=== PATIENT | female | born 1960 | race African-American/Black ===

== ENCOUNTER 2019-07-19 06:13 | Observation (INO) ==
[2019-07-19] MEDS ORDERED: DUONEB (A & A) INH ONE (07:31)
[2019-07-19 07:45] LABS: BASO# 0.02 X1000 (0.0-0.2); BASO% 0.4 % (0.0-0.8); EOS# 0.32 X1000 (0.0-0.7); EOS% 5.7 % (0.0-10.0); HEMATOCRIT 38.3 % (37.0-47.0); HEMOGLOBIN 12.5 g/dL (12.0-16.0); IMM GRAN# 0.02 X1000 (0.0-0.04); IMM GRAN% 0.4 % (0.0-0.5); LYMPH# 1.61 X1000 (1.2-3.4); LYMPH% 28.8 % (20.5-51.1); MCH 29.6 PG (27-31); MCHC 32.6 g/dL (33-37); MCV 90.5 FL (81-99); MONO# 0.76 X1000 (0.11-0.59); MONO% 13.6 % (1.7-9.3); MPV 10.2 FL (7.4-10.4); NEUT# 2.87 X1000 (1.4-6.5); NEUT% 51.1 % (42.2-75.2); PLT 232 X1000 (130-400); RBC 4.23 XMIL (4.2-5.4); RDW 12.7 % (11.5-14.5)
[2019-07-19 07:52] LABS: INR 1.04; PROTIME 13.8 Seconds (11.0-16.0)
[2019-07-19 07:53] LABS: PTT 36.3 Seconds (22.3-41.8)
--- NOTE | 2019-07-19 08:03 | Diag Imaging Result Doc PS360 ---
CHEST-PORTABLE - 07/19/2019 INDICATION: stroke like symptoms COMPARISON: 11/12/2018 FINDINGS: The lungs are normally expanded and clear. Heart size and mediastinal contours are normal. No pneumothorax or pleural effusion. IMPRESSION: Negative exam. Electronically signed by Lm Hernandez 07/19/2019 8:01 AM
--- NOTE | 2019-07-19 08:08 | EKG Report ---
Test Performed on : 07/19/2019 06:19:38 AM Test Reason : Stroke like symptoms Blood Pressure : / mmHG Vent. Rate : 074 BPM Atrial Rate : 074 BPM P-R Int : 158 ms QRS Dur : 074 ms QT Int : 392 ms P-R-T Axes : 046 037 011 degrees QTc Int : 435 ms Normal sinus rhythm. Possible Left atrial enlargement Borderline ECG When compared with ECG of 12-NOV-2018 18:09, Nonspecific T wave abnormality has replaced inverted T waves in Anterior leads Unconfirmed Result
[2019-07-19 08:11] LABS: AGAP 14; ALB/GLOB RATIO 1.7; ALBUMIN 4.3 g/dL (3.5-5.0); ALKALINE PHOSPHATASE 84 U/L (32-104); BUN 8 mg/dL (8-22); CALCIUM 9.7 mg/dL (8.8-10.2); CHLORIDE 102 mmol/L (98-107); COSMO 283; CREATININE 0.7 mg/dL (0.5-0.9); ESTIMATED GFR > 60; GLUCOSE 94 mg/dL (70-104); GOT 18 U/L (10-30); GPT 16 U/L (10-36); POTASSIUM 4.5 mmol/L (3.5-5.1); SODIUM 143 mmol/L (136-145); TCO2 27 mmol/L (25-35); TOTAL BILIRUBIN 0.58 mg/dL (0.20-1.00); TOTAL PROTEIN 6.9 g/dL (6.3-8.3)
[2019-07-19 08:22] LABS: URINE SOURCE CLEAN CATCH
[2019-07-19 08:28] LABS: BILIRUBIN URINE SMALL (NEGATIVE); BLOOD URINE TRACE (NEGATIVE); COLOR YELLOW; GLUCOSE URINE NEGATIVE (NEGATIVE); KETONE URINE NEGATIVE (NEGATIVE); LEUKOCYTES URINE NEGATIVE (NEGATIVE); NITRITE URINE POSITIVE (NEGATIVE); PROTEIN URINE TRACE mg/dL (NEGATIVE); TURBIDITY URINE CLEAR (CLEAR); UR EPITHELIAL CELLS <10 /HPF (<10); URINE BACTERIA NEGATIVE /HPF; URINE RBC <10 /HPF (<10); URINE WBC <10 /HPF (<10); UROBILINOGEN URINE 3 mg/dL (NORMAL)
[2019-07-19 08:41] LABS: UR AMPHETAMINES QUAL NONE DETECTED (NONE DETECT); UR BARBITUATES QUAL NONE DETECTED (NONE DETECT); UR BENZODIAZEPIN QUAL NONE DETECTED (NONE DETECT); UR CANNABINOIDS QUAL NONE DETECTED (NONE DETECT); UR COCAINE QUAL NONE DETECTED (NONE DETECT); UR METHADONE QUAL NONE DETECTED (NONE DETECT); UR OPIATES QUAL NONE DETECTED (NONE DETECT); UR OXYCODONE QUAL NONE DETECTED (NONE DETECT); UR PCP QUAL NONE DETECTED (NONE DETECT)
--- NOTE | 2019-07-19 08:47 | Diag Imaging Result Doc PS360 ---
EXAM: CT HEAD W/O CONTRAST 07/19/2019 HISTORY: stroke like symptoms TECHNIQUE: This exam was performed using automated exposure control, adjustment of mA or kV according to patient size, and/or use of iterative reconstruction technique. COMMENT: There are small calcifications in the globus pallidus bilaterally. There is no evidence of mass effect, bleed, or abnormal extra-axial fluid collection. Compared to the previous examination of 07/10/2018 there has been no significant change. There is some fluid in the right maxillary sinus and mucosal thickening in multiple ethmoid air cells. There is some deformity of the lamina papyracea on the left which is presumably due to previous trauma and has not changed since the previous study. The calvarium is intact. IMPRESSION: No evidence of acute intracranial disease. Minimal ethmoid and right maxillary sinusitis. Electronically signed by Lb Diaz 07/19/2019 8:38 AM
--- NOTE | 2019-07-19 09:52 | PROVIDER DOCUMENTATION ---
HPI-Neurological Disorder - General Chief Complaint: General Adult Stated Complaint: COLD SYMPTOMS, SOB/L-SIDE NUMBNESS Time Seen by Provider: 07/19/19 07:07 Source: patient Allergies/Adverse Reactions: Patient Allergies Allergy/AdvReac Type Severity Reaction Status Date / Time No Known Allergies Allergy Verified 07/19/19 06:42 Home Medications: Home Medication List Medication Instructions Recorded Confirmed Last Taken Type Citalopram [Celexa] 20 mg PO DAILY 07/11/18 07/19/19 07/10/18 History ATORVAstatin [Lipitor] 40 mg PO QHS #30 tab 07/12/18 07/19/19 Unknown Rx Clopidogrel Bisulfate [Plavix] 75 mg PO DAILY #30 tab 07/12/18 07/19/19 Unknown Rx Ibuprofen 800 mg PO TID PRN #30 tab 11/12/18 07/19/19 Unknown Rx Cephalexin 500 mg PO DAILY 07/19/19 07/19/19 Unknown History Gabapentin 300 mg PO TID 07/19/19 07/19/19 Unknown History Phenazopyridine [Pyridium] 200 mg PO TID 07/19/19 07/19/19 Unknown History - History of Present Illness-Neuro Nature of Presenting Problem: 59 yo BF with hx of CVA c/o URI sx and headache with lt sided weakness for the past 2 days. She states that this weakness is new for the past 2 days. Pt denies any speech or vision problems. Headache Location: reports: parietal (lt sided) Severity: reports: mild Onset/Duration: reports: 2 days ago Timing: reports: still present Context: denies: none, found unresponsive by senior living staff, fever, impaired speech, paresthesia, facial droop, falling, seizure activity, found unresponsive by bystander, found unresponsive by family, low blood sugar, recent/heavy alcohol intake, drug abuse, overdose, head injury, recent infection, other Character of Altered Mental Status: denies: N/A, disoriented, unchanged from baseline, confused, combative, agitated, trouble concentrating, unresponsive, seizure activity, decreased responsiveness, other Any recent trauma/injury?: reports: none Character of Deficits: reports: new weakness (lt upper and lower extremity) New weakness or altered sensation location:: reports: LUE, LLE Cognitive Baseline: alert, oriented x3 Gait Baseline: walks without assistance Associated Symptoms: reports: other (cough and sinus congestion) Similar Symptoms Previously?: Yes Recently seen or treated by another doctor?: No Review of Systems - Adult - REVIEW OF SYSTEMS - ADULT Constitutional: reports: no symptoms reported, see HPI Eyes: reports: no symptoms reported, see HPI Ears, Nose, Mouth & Throat: reports: see HPI, sinus problem Cardiovascular: reports: no symptoms reported, see HPI Respiratory: reports: see HPI, cough Gastrointestinal: reports: no symptoms reported, see HPI Genitourinary: reports: no symptoms reported, see HPI Musculoskeletal: reports: no symptoms reported, see HPI Integumentary: reports: no symptoms reported, see HPI Neurological: reports: see HPI, other (lt sided weakness) Psychiatric: reports: no symptoms reported, see HPI Endocrine: reports: no symptoms reported, see HPI Hematologic/Lymphatic: reports: no symptoms reported, see HPI Allergic/Immunologic: reports: no symptoms reported, see HPI All Other Systems: Reviewed and Negative Past History - Adult - PAST MEDICAL HISTORY-ADULT Review of Records: reports: Nursing Assessment Review, Medications Reviewed, Social history reviewed & non-contributory. Physical Exam- Neurological - Physical Exam-Neuro Initial Vital Signs Reviewed: Yes General Appearance: appears well, alert, no apparent distress HENMT: normocephalic/atraumatic, moist mucous membranes, maxillary tenderness, other (sinusitis) Head Injury: no evidence of injury Neck: non-tender, full range of motion, supple, normal inspection Respiratory: chest non-tender, lungs clear, normal breath sounds, no pleuratic chest pain, no respiratory distress, no accessory muscle use Cardiovascular: normal peripheral pulses, regular rate, rhythm, no edema, no g allop, no JVD, no murmur Abdominal Exam: normal bowel sounds, non tender, soft, no organomegaly Lymphatic: no adenopathy Extremity: normal range of motion, non-tender global engineering manager Exam: normal hearing, normal speech, PERRL Coordination/Gait: normal finger to nose Motor/Sensory: no sensory deficit, no pronator drift, other (lt sided decreased motor) Neurologic: global engineering manager II-XII nml as tested, grossly normal Integumentary: normal color, normal turgor Psych/Mental Status: normal mood/affect, normal thought content, normal thought process, oriented x 3 - Glascow Coma Scale Best Eye Response: (4) open spontaneously Best Verbal Response: (5) oriented Best Motor Response: (6) obeys commands Progress - PLAN OF CARE/RESULTS Progress/Plan/Lab Results: Vital Signs - 8 hr 07/19/19 06:14 07/19/19 08:37 Temperature 98.7 F Pulse Rate 74 60 Respiratory Rate 19 20 Blood Pressure 140/79 O2 Sat by Pulse Oximetry 100 100 Laboratory Results - last 24 hr 07/19/19 07/19/19 07/19/19 06:27 06:49 06:49 WBC 5.60 RBC 4.23 Hgb 12.5 Hct 38.3 MCV 90.5 MCH 29.6 MCHC 32.6 L RDW Std Deviation 12.7 Plt Count 232 MPV 10.2 Immature Gran % (Auto) 0.4 Neut % (Auto) 51.1 Lymph % (Auto) 28.8 [place] % (Auto) 13.6 H Eos % (Auto) 5.7 Baso % (Auto) 0.4 Immature Gran # (Auto) 0.02 Neut # (Auto) 2.87 Lymph # (Auto) 1.61 [place] # (Auto) 0.76 H Eos # (Auto) 0.32 Baso # (Auto) 0.02 PT INR PTT (Actin FS) Sodium 143 Potassium 4.5 Chloride 102 Carbon Dioxide 27 Anion Gap 14 BUN 8 Creatinine 0.7 Estimated GFR/1.73 m2 > 60 BUN/Creatinine Ratio 11 Glucose 94 POC Glucose 78 Calculated Osmolality 283 Calcium 9.7 Total Bilirubin 0.58 AST 18 ALT 16 Alkaline Phosphatase 84 Troponin T Total Protein 6.9 Albumin 4.3 Globulin 2.6 Albumin/Globulin Ratio 1.7 Urine Source Urine Color Urine Turbidity Urine pH Ur Specific [place] Urine Protein Ur Glucose (Stick) Ur Ketones (Stick) Urine Blood Urine Nitrite Urine Bilirubin Urobilinogen Dipstick Urine Leukocytes Urine WBC (Auto) Urine RBC (Auto) U Epithel Cells (Auto) Urine Bacteria (Auto) Urine Opiates Screen Ur Oxycodone Screen Ur Methadone, Qual Ur Barbiturates Screen Ur Phencyclidine Scrn Ur Amphetamines Screen U Benzodiazepines Scrn Urine Cocaine Screen U Cannabinoids Screen 07/19/19 07/19/19 07/19/19 06:49 06:49 08:16 WBC RBC Hgb Hct MCV MCH MCHC RDW Std Deviation Plt Count MPV Immature Gran % (Auto) Neut % (Auto) Lymph % (Auto) [place] % (Auto) Eos % (Auto) Baso % (Auto) Immature Gran # (Auto) Neut # (Auto) Lymph # (Auto) [place] # (Auto) Eos # (Auto) Baso # (Auto) PT 13.8 INR 1.04 PTT (Actin FS) 36.3 Sodium Potassium Chloride Carbon Dioxide Anion Gap BUN Creatinine Estimated GFR/1.73 m2 BUN/Creatinine Ratio Glucose POC Glucose Calculated Osmolality Calcium Total Bilirubin AST ALT Alkaline Phosphatase Troponin T < 0.010 Total Protein Albumin Globulin Albumin/Globulin Ratio Urine Source CLEAN CATCH Urine Color YELLOW Urine Turbidity CLEAR Urine pH 7.0 Ur Specific [place] 1.020 Urine Protein TRACE A Ur Glucose (Stick) NEGATIVE Ur Ketones (Stick) NEGATIVE Urine Blood TRACE A Urine Nitrite POSITIVE A Urine Bilirubin SMALL A Urobilinogen Dipstick 3 A Urine Leukocytes NEGATIVE Urine WBC (Auto) <10 Urine RBC (Auto) <10 U Epithel Cells (Auto) <10 Urine Bacteria (Auto) NEGATIVE Urine Opiates Screen Ur Oxycodone Screen Ur Methadone, Qual Ur Barbiturates Screen Ur Phencyclidine Scrn Ur Amphetamines Screen U Benzodiazepines Scrn Urine Cocaine Screen U Cannabinoids Screen 07/19/19 08:16 WBC RBC Hgb Hct MCV MCH MCHC RDW Std Deviation Plt Count MPV Immature Gran % (Auto) Neut % (Auto) Lymph % (Auto) [place] % (Auto) Eos % (Auto) Baso % (Auto) Immature Gran # (Auto) Neut # (Auto) Lymph # (Auto) [place] # (Auto) Eos # (Auto) Baso # (Auto) PT INR PTT (Actin FS) Sodium Potassium Chloride Carbon Dioxide Anion Gap BUN Creatinine Estimated GFR/1.73 m2 BUN/Creatinine Ratio Glucose POC Glucose Calculated Osmolality Calcium Total Bilirubin AST ALT Alkaline Phosphatase Troponin T Total Protein Albumin Globulin Albumin/Globulin Ratio Urine Source Urine Color Urine Turbidity Urine pH Ur Specific [place] Urine Protein Ur Glucose (Stick) Ur Ketones (Stick) Urine Blood Urine Nitrite Urine Bilirubin Urobilinogen Dipstick Urine Leukocytes Urine WBC (Auto) Urine RBC (Auto) U Epithel Cells (Auto) Urine Bacteria (Auto) Urine Opiates Screen NONE DETECTED Ur Oxycodone Screen NONE DETECTED Ur Methadone, Qual NONE DETECTED Ur Barbiturates Screen NONE DETECTED Ur Phencyclidine Scrn NONE DETECTED Ur Amphetamines Screen NONE DETECTED U Benzodiazepines Scrn NONE DETECTED Urine Cocaine Screen NONE DETECTED U Cannabinoids Screen NONE DETECTED Orders Category Date Time Status Cardiac Monitoring DIRECTED Care 07/19/19 07:30 Active Finger Stick Blood Sugar (ED) DIRECTED Care 07/19/19 07:30 Completed Oxygen Therapy- ED Nursing DIRECTED Care 07/19/19 07:30 Active Saline Loc NOW Care 07/19/19 07:30 Active CHEST-PORTABLE [RAD] Stat Exams 07/19/19 07:[address] HEAD W/O CONTRAST [CT] Stat Exams 07/19/19 07:30 Completed CBC WITH ELECTRONIC DIFF [HEME] Stat Lab 07/19/19 06:49 Completed COMPREHENSIVE METABOLIC PANEL [CHEM] Stat Lab 07/19/19 06:49 Completed PROTIME WITH INR [COAG] Stat Lab 07/19/19 06:49 Completed PTT [COAG] Stat Lab 07/19/19 06:49 Completed TROPONIN T Stat Lab 07/19/19 06:49 Completed URINALYSIS W/POSS RFLX CULT [URINALYSIS] Stat Lab 07/19/19 08:16 Completed URINE CULTURE [RM] Routine Lab 07/19/19 08:16 Received URINE DRUG SCREEN Stat Lab 07/19/19 08:16 Completed Albuterol 2.5MG/Ipratrop 0.5MG [Duoneb (A & A)] Med 07/19/19 07:31 Discontinued 3 ml INH NOW ONE Aerosol Treatments Routine Oth 07/19/19 07:32 Completed Aerosol Treatments Stat Oth 07/19/19 07:32 Completed EKG [EKG] Stat Ther 07/19/19 07:30 Draft Result Diagrams: 07/19/19 06:49 07/19/19 06:49 - CT/MRI 1 CT Study: Head Impression: Normal, See EMR Report - CONSULTS/PCP/HOSPITALIST Notification #1 *Consult/PCP/Hospitalist*: Tonya WHEAT COMBINE DRIVER for hospitalist Time Discussed: 10:16 Consult Disposition: Will see in ED, Admit Departure - Departure Date of Disposition Decision: 07/19/19 Time of Disposition Decision: 10:17 DIAGNOSIS: UTI (urinary tract infection), Sinusitis, Left-sided weakness Disposition: ADMITTED INPATIENT 09 Certified Medical Emergency: Emergent Condition: Fair Referrals and Follow-Ups: Teri Long CRNP [Primary Care Provider] - - Critical Care Note This patient required my direct & personal management of CC.: No Attestation - Physician/ CECY Attestation Patient care was provided by Advanced Practice Provider:: No The physician spent face to face time with patient:: Yes Advanced Practice Provider documentation review:: Supervising physician onsite and consulted in the evaluation and care of this patient. The physician did have a face to face encounter with the patient.
[2019-07-19] MEDS ORDERED: ZOFRAN IV PRN (10:16)
[2019-07-19] MEDS ORDERED: ROCEPHIN 1 GM in NS 50 ML IV ONE (10:18)
[2019-07-19] MEDS ORDERED: ZITHROMAX PO ONE (10:18)
[2019-07-19] MEDS ORDERED: TYLENOL PO PRN (10:20)
[2019-07-19] MEDS: PYRIDIUM PO SCH ×2 (11:28→18:43)
[2019-07-19] MEDS: MUCINEX PO SCH ×2 (12:18→20:43)
[2019-07-19] MEDS: PLAVIX PO SCH (12:19)
[2019-07-19] MEDS: NS 1,000 ML IV SCH (12:20)
[2019-07-19] MEDS: NEURONTIN PO SCH ×2 (12:59→18:43)
--- NOTE | 2019-07-19 13:29 | HISTORY AND PHYSICAL ---
CHIEF COMPLAINT: Headache, cough, sinus drainage, and left-sided weakness. HISTORY OF PRESENT ILLNESS: This is a 59-year-old female with a history of hypertension and prior CVA with left-sided weakness, who presents to the emergency room complaining of 2 days of a headache that is behind her left eye and into her left cheek. She states it is a throbbing-type headache that was diagnosed as sinusitis by her PCP approximately 3 days prior. She reports left arm and left leg, during this time. When asked if this is new or residual from her prior CVA, Answers vary. At one time, she states that this left-sided weakness is residual from her prior stroke. Another time, she will state that this is new. She complains of a productive cough, as well as increased nasal congestion, stating that secretions are yellow. She denies any fevers or chills. She reports being evaluated by her PCP 2 days prior for the same symptoms, diagnosed with a urinary tract infection and sinusitis. She was prescribed Keflex and Pyridium. PAST MEDICAL HISTORY: 1. CVA with left-sided weakness. 2. Migraine headaches. PAST SURGICAL HISTORY: section and hysterectomy. SOCIAL HISTORY: She denies any illicit drug use. States she quit smoking years ago. She does drink alcohol occasionally, with her last drink being months ago. ALLERGIES: No known drug allergies. HOME MEDICATIONS: Lipitor 40, Celexa 20 mg, Plavix 75 mg, gabapentin 300 mg p.o. t.i.d., Pyridium 200 mg p.o. t.i.d., and Keflex 500 p.o. daily. REVIEW OF SYSTEMS: Discussed with the patient, with pertinent positives stated in the HPI. She denies any syncope or dizziness, any chest pain or palpitations, any shortness of breath, fever, chills, night sweats, any nausea, vomiting, diarrhea, constipation, black or bloody vomitus or stools, any hematuria, any change in vision, hearing, or speech. She denies any difficulty swallowing or chewing food. PHYSICAL EXAMINATION: GENERAL: This is a 59-year-old female who is sitting up in the stretcher in the emergency room in no distress. VITAL SIGNS: Blood pressure is 140/79, with a heart rate of 74, respirations are 18, temperature is 98.7 degrees with room air saturations of 100%. HEENT: Head is normocephalic, atraumatic. Mucous membranes are moist. NECK: Supple with trachea midline. CARDIOVASCULAR: Regular rate and rhythm. S1 and S2 are appreciated. She has no lower extremity edema. Calves are nontender bilaterally, with peripheral pulses palpable x4 extremities. PULMONARY: Breath sounds are clear with no increased work of breathing noted. Chest rises and falls symmetric with respiration. Chest wall is nontender to palpation. GASTROINTESTINAL: Abdomen is soft, nontender, nondistended, with bowel sounds in all 4 quadrants. NEUROLOGIC: Pupils are equal, round, react to light. Forehead is spared. She has no facial droop. Equal nasal flaring. No tongue or uvula deviation. She has equal shoulder shrug. No plantar drift. Finger to nose is 3/3 bilaterally. Hoof And Shoe Inspector are equal. Muscle strength on right upper and lower extremity is 5/5, left upper and lower extremity is 3 to 4/5. LABORATORY DATA: WBC is 5.6, with hemoglobin 12.5, hematocrit 38.3, and platelets 232,000. Sodium 143, potassium 4.5, BUN 8, creatinine 0.7, glucose of 94. Urinalysis is nitrite positive with less than 10 red blood cells, white blood cells, and epithelial cells. Urine drug screen reveals none detected. Urine culture is pending. IMAGIN. CT of the head revealed no evidence of acute intracranial disease. Minimal ethmoid and right maxillary sinusitis. 2. Chest x-ray revealed negative exam. ASSESSMENT: 1. Headache. 2. Sinusitis. 3. Possible urinary tract infection. 4. Left-sided weakness status post cerebrovascular accident. 5. Hyperlipidemia. PLAN: The patient will be admitted to the medical floor. placed on telemetry with neurologic checks every 4 hours. Monitor I and O. CBC and BMP in the morning. Urine culture is pending. Rocephin and azithromycin, and further antibiotics will be culture driven. continue home medications as appropriate once they are verified. Mucinex every 12 hours gentle IV hydration. Plan was discussed with Dr. Howe. Further treatments pending hospital course. Dictated by STANISLAV Duque for Morgan Luz MD Addendum: Patient seen and examined by myself. Agree with SCIENTIFIC EDITOR note. It reflects my assessment and plan. Patient is being admitted to hospital for UTI and headache and sinusitis. Will monitor her closely. cc: STANISLAV Duque MD MTDD
[2019-07-19] MEDS ORDERED: TESSALON PO PRN (16:19)
[2019-07-19] MEDS: DUONEB (A & A) INH PRN ×2 (20:03→23:40)
[2019-07-19] MEDS: MIRALAX PO SCH (20:42)
[2019-07-19] MEDS ORDERED: LIPITOR PO SCH (21:00)
[2019-07-20] MEDS: NEURONTIN PO SCH (03:04)
[2019-07-20] MEDS: PYRIDIUM PO SCH (03:05)
[2019-07-20] MEDS: DUONEB (A & A) INH PRN ×2 (03:42→08:25)
[2019-07-20] MEDS: NS 1,000 ML IV SCH (06:38)
[2019-07-20] MEDS ORDERED: PRILOSEC PO SCH (07:00)
[2019-07-20 07:25] LABS: BASO# 0.02 X1000 (0.0-0.2); BASO% 0.4 % (0.0-0.8); EOS# 0.26 X1000 (0.0-0.7); EOS% 5.1 % (0.0-10.0); HEMATOCRIT 37.2 % (37.0-47.0); HEMOGLOBIN 11.8 g/dL (12.0-16.0); IMM GRAN# 0.02 X1000 (0.0-0.04); IMM GRAN% 0.4 % (0.0-0.5); LYMPH# 1.99 X1000 (1.2-3.4); LYMPH% 38.7 % (20.5-51.1); MCH 28.9 PG (27-31); MCHC 31.7 g/dL (33-37); MCV 91.2 FL (81-99); MONO# 0.58 X1000 (0.11-0.59); MONO% 11.3 % (1.7-9.3); NEUT# 2.27 X1000 (1.4-6.5); NEUT% 44.1 % (42.2-75.2); PLT 248 X1000 (130-400); RBC 4.08 XMIL (4.2-5.4); RDW 12.8 % (11.5-14.5); WBC 5.14 X1000 (4.8-10.8)
[2019-07-20 07:53] LABS: AGAP 13; BUN 8 mg/dL (8-22); CALCIUM 9.7 mg/dL (8.8-10.2); CHLORIDE 100 mmol/L (98-107); COSMO 274; CREATININE 0.6 mg/dL (0.5-0.9); ESTIMATED GFR > 60; GLUCOSE 102 mg/dL (70-104); POTASSIUM 3.8 mmol/L (3.5-5.1); SODIUM 138 mmol/L (136-145); TCO2 25 mmol/L (25-35)
[2019-07-20 07:56] VITALS: BP 127/84
[2019-07-20] MEDS ORDERED: CELEXA PO SCH (09:00)
[2019-07-20] MEDS: MIRALAX PO SCH (09:26)
[2019-07-20] MEDS: PLAVIX PO SCH (09:27)
[2019-07-20] MEDS: MUCINEX PO SCH (09:27)
--- NOTE | 2019-07-20 12:10 | DISCHARGE SUMMARY ---
ADMISSION DATE: 07/19/2019 DISCHARGE DATE: 07/20/2019 DIAGNOSES: 1. Headache. 2. Sinusitis. 3. Possible urinary tract infection, although urine revealed no growth. 4. Left-sided weakness, status post cerebrovascular accident, chronic. 5. Hyperlipidemia. DIAGNOSTICS: 1. Chest x-ray revealed negative exam. 2. CT of the head, no evidence of acute intracranial disease. Minimal ethmoid and right maxillary sinusitis. 3. Microbiology, urine culture revealed no growth. HOSPITAL COURSE: Ms. Sutton presented to the emergency room complaining of a headache behind her left eye, going down into her left cheek, that had been present for over 48 hours. She described it as a throbbing type pain. She rates as a 9/10 at its worst and 2- 3/10 at its best. She was evaluated by her primary care physician 3 days prior for these symptoms, diagnosed with sinusitis and a UTI and given antibiotics with no change in symptoms. She reported left arm and left leg weakness. Answers varied re:this being chronic from a previous CVA or new . At one time, she would say it was a result of a prior stroke. Another time, she would say it was new. She did have a nitrite positive urine dip, although it should be noted the patient is on Pyridium. Anyway, the culture did reveal no growth. DISCHARGE VITAL SIGNS: Blood pressure is 127/84, with a heart rate of 68, respirations are 18, temperature 98.1 degrees, with room air saturations 96 to 100 percent. DISCHARGE PHYSICAL EXAMINATION: Cardiovascular: Regular rate and rhythm. S1 and S2 are appreciated. She has no lower extremity edema. Calves are nontender. Peripheral pulses are palpable x4 extremities. Pulmonary: Breath sounds are clear with no increased work of breathing noted. Chest rises and falls symmetrically with respirations. Gastrointestinal: Abdomen is soft, nontender, nondistended. Bowel sounds in all 4 quadrants. Neurologic: She is alert and oriented x3 with unchanged neurological exam from admission. DISCHARGE MEDICATIONS: 1. Levaquin 750 mg p.o. daily x7 days. 2. Ibuprofen 800 mg p.o. t.i.d. p.r.n. for pain or fever. 3. Gabapentin 300 mg p.o. t.i.d. 4. Plavix 75 mg p.o. daily. 5. Celexa 20 mg p.o. daily. 6. Atorvastatin 40 mg p.o. at bedtime FOLLOWUP: STANISLAV Helton. She needs to call the office on Wednesday to schedule an appointment to be seen in a week. She has been instructed to call to be seen sooner or return to the ER for any syncope, dizziness, chest pain, palpitations, temperature greater than 101, any shortness of breath, nausea, vomiting, diarrhea, constipation, black or bloody vomitus or stools, or for any questions or concerns that she may have. She is being discharged home in stable condition with family members. TIME SPENT: This is a greater than 30 minute discharge. Dictated by STANISLAV Duque for Morgan Luz MD Addendum: Patient seen and examined by myself. Agree with STANISLAV note. It reflects my assessment and plan. Patient is being discharged in stable condition. Will be seen by PCP in a week cc: STANISLAV Duque MD [facility]
== END 2019-07-20 11:41 | disposition home or self-care (01) ==
LOC: EDIPHOLD 06:13 → ED 06:13 → 3N 12:23
PROVIDERS: ATTEND Internal Medicine

== ENCOUNTER 2019-12-04 14:42 | Inpatient (IN) ==
[2019-12-04 16:25] LABS: URINE SOURCE CLEAN CATCH
[2019-12-04 16:32] LABS: BASO# 0.06 X1000 (0.0-0.2); BASO% 0.9 % (0.0-0.8); EOS# 0.23 X1000 (0.0-0.7); EOS% 3.3 % (0.0-10.0); HEMATOCRIT 37.7 % (37.0-47.0); HEMOGLOBIN 12.2 g/dL (12.0-16.0); IMM GRAN# 0.02 X1000 (0.0-0.04); IMM GRAN% 0.3 % (0.0-0.5); LYMPH# 2.14 X1000 (1.2-3.4); LYMPH% 30.5 % (20.5-51.1); MCHC 32.4 g/dL (33-37); MCV 89.8 FL (81-99); MONO# 0.44 X1000 (0.11-0.59); MONO% 6.3 % (1.7-9.3); MPV 9.8 FL (7.4-10.4); NEUT# 4.13 X1000 (1.4-6.5); NEUT% 58.7 % (42.2-75.2); PLT 257 X1000 (130-400); RDW 12.8 % (11.5-14.5); WBC 7.02 X1000 (4.8-10.8)
--- NOTE | 2019-12-04 16:39 | PROVIDER DOCUMENTATION ---
HPI-General Adult - General Chief Complaint: Constipation Stated Complaint: SEVERE BACK PAIN CONSTIPATION Time Seen by Provider: 12/04/19 15:05 Source: patient Allergies/Adverse Reactions: Patient Allergies Allergy/AdvReac Type Severity Reaction Status Date / Time Stone And Derivatives Allergy Mild ITCHING Verified 12/04/19 17:11 Home Medications: Home Medication List Medication Instructions Recorded Confirmed Last Taken Type Citalopram [Celexa] 20 mg PO DAILY 07/11/18 07/19/19 07/18/19 08:00 History ATORVAstatin [Lipitor] 40 mg PO QHS #30 tab 07/12/18 07/19/19 07/18/19 21:00 Rx Clopidogrel Bisulfate [Plavix] 75 mg PO DAILY #30 tab 07/12/18 07/19/19 07/18/19 08:00 Rx Ibuprofen 800 mg PO TID PRN #30 tab 11/12/18 07/19/19 Unknown Rx Gabapentin 300 mg PO TID 07/19/19 07/19/19 07/18/19 21:00 History Phenazopyridine [Pyridium] 200 mg PO TID 07/19/19 07/19/19 07/18/19 21:00 History Levofloxacin [Levaquin] 750 mg PO DAILY #7 tab 07/20/19 Unknown Rx - History of Present Illness -Gen Adult Nature of Presenting Problems: Patient is a 59yo F who presents with complaints of low back pain radiating down R leg, increased urinary frequency, constipation, and increased belching. Reports she has chronic back pain, and current "flare up" began 4 days ago. Denies any known injury/strain. Patient also reports she has been unable to have a bowl movement in 1.5 - 2 weeks despite numerous OTC medicatio ns/suppositories. States she is also experiencing increased belching, however is unable to pass gas. Denies fever, flu-like symptoms, n/v, dysuria, loss of bowel/bladder control, motor weakness, CP, or SOB. Patient is able to ambulate with pain in ED. Sensation and motor strength equal in bilateral lower extremities. Non-toxic in appearance. Location of Pain/Injury: reports: abdomen, back Pain Radiation: reports: legs (lower) (R) Quality of Pain: reports: aching, pressure Severity: reports: moderate Onset/Duration: reports: 4 days ago (back pain "flare"), other (1.5 weeks ago - constipation) Timing: reports: still present Context/Activities at Onset: reports: none Modifying Factors: improves with: rest. worse with: movement Associated Symptoms: reports: back/neck pain, constipation, genitourinary problems. denies: chest pain, dizziness, fever/chills, nausea, shortness of breath, weakness Similar Symptoms Previously?: Yes (chronic back pain) Recently seen or treated by another doctor?: No Review of Systems - Adult - REVIEW OF SYSTEMS - ADULT Constitutional: denies: chills, fever Eyes: reports: no symptoms reported Ears, Nose, Mouth & Throat: denies: sinus problem, throat pain Cardiovascular: denies: chest pain, palpitations Respiratory: denies: cough, shortness of breath Gastrointestinal: reports: see HPI, abdominal pain, constipation. denies: nausea, vomiting Genitourinary: reports: see HPI, frequency. denies: dysuria Musculoskeletal: reports: see HPI, back pain Integumentary: reports: no symptoms reported Neurological: denies: dizziness/vertigo, headache/migraines Psychiatric: reports: no symptoms reported Endocrine: reports: no symptoms reported Past History - Adult - PAST MEDICAL HISTORY-ADULT Review of Records: reports: Nursing Assessment Review, Medications Reviewed Cardiovascular: reports: HTN, hyperlipidemia Musculoskeletal: reports: chronic pain Neurological: reports: CVA - IMMUNIZATION STATUS Childhood Immunizations: See Nurse Assessment Flu Vaccine: See Nurse Assessment - FAMILY HISTORY Family History: reviewed, not pertinent - SOCIAL HISTORY Smoking: other (former) Physical Exam-General - PHYSICAL EXAM-ADULT Initial Vital Signs Reviewed: Yes - CONSTITUTIONAL General Appearance: alert, mild distress. negative: lethargic, slow to respond - EYES Eyes: PERRL/EOMI, pink conjunctivae. negative: EOM palsy, scleral icterus - HEAD, EARS, NOSE, MOUTH & THROAT HENMT: normocephalic/atraumatic, moist mucous membranes. negative: angioedema - NECK Neck: non-tender, full range of motion, supple, normal inspection - RESPIRATORY Respiratory: chest non-tender, lungs clear, normal breath sounds, no pleuratic chest pain, no respiratory distress, no accessory muscle use. negative: crackles, rales, rhonchi, stridor, wheezing - CARDIOVASCULAR Cardiovascular: normal peripheral pulses, regular rate, rhythm, no gallop - GASTROINTESTINAL (ABDOMEN) Abdominal Exam: soft, abnormal bowel sounds (hyperactive x4), distended, tenderness (mild diffuse tenderness to palpation). negative: guarding, rigid - GENITOURINARY Rectal Exam: normal exam, normal rectal tone - MUSCULOSKELETAL Back Exam: normal inspection, no CVA tenderness, other (R lumbar paraspinous muscles TTP) Extremity: normal range of motion, non-tender, normal inspection, pelvis stable. negative: abnormal NV exam, pulse deficit Peripheral Pulses: radial (R): 2+, radial (L): 2+, dorsalis-pedis (R): 2+, dorsalis-pedis (L): 2+ DTR: knee (R): 2+, knee (L): 2+, ankle (R): 2+, ankle (L): 2+ - SKIN Integumentary: normal color, warm/dry. negative: cyanosis, jaundice, pallor - NEUROLOGIC Neurologic: grossly normal. negative: aphasia, EOM palsy, focal weakness, motor weakness, sensory deficit - PSYCHIATRIC Psych/Mental Status: normal mood/affect, normal thought content, normal thought process, oriented x 3 Progress - PLAN OF CARE/RESULTS Progress/Plan/Lab Results: Vital Signs - 8 hr 12/04/19 14:46 Temperature 98.7 F Pulse Rate 64 Respiratory Rate 18 Blood Pressure 120/64 O2 Sat by Pulse Oximetry 97 Laboratory Results - last 24 hr 12/04/19 12/04/19 16:12 16:16 WBC 7.02 RBC 4.20 Hgb 12.2 Hct 37.7 MCV 89.8 MCH 29.0 MCHC 32.4 L RDW Std Deviation 12.8 Plt Count 257 MPV 9.8 Immature Gran % (Auto) 0.3 Neut % (Auto) 58.7 Lymph % (Auto) 30.5 Jack % (Auto) 6.3 Eos % (Auto) 3.3 Baso % (Auto) 0.9 H Immature Gran # (Auto) 0.02 Neut # (Auto) 4.13 Lymph # (Auto) 2.14 Jack # (Auto) 0.44 Eos # (Auto) 0.23 Baso # (Auto) 0.06 Urine Source CLEAN CATCH Orders Category Date Time Status Saline Loc NOW Care 12/04/19 15:05 Active CBC WITH ELECTRONIC DIFF [HEME] Stat Lab 12/04/19 16:16 Completed COMPREHENSIVE METABOLIC PANEL [CHEM] Stat Lab 12/04/19 16:16 Received URINALYSIS W/POSS RFLX CULT [URINALYSIS] Stat Lab 12/04/19 16:12 Results 1859: Lab results, imaging results, plan of care, and need for admission discussed with patient who agrees with and verbalizes understanding. Result Diagrams: 12/04/19 16:16 12/04/19 16:16 - REASSESSMENT Reassessment #1 Time Reassessed: 17:30 Status: improving Reassessment Comment: Patient reports improvement in pain post Toradol - CT/MRI 1 CT Study: Abdomen, Pelvis Impression: See EMR Report ([facility] - [address], [address], [place] [address] [facility] - [address] [place] [address] Department of Imaging Patient: PAVITHRA SIMMONS Date: 12/04/19MR#: [id number] : 1960DM [id number] Age/Sex: 59/FRoom/Bed: Loc: ED Ordering Physician: Nahomi Erazo Family Physician: TERI LONG Reason for Procedure: abd pain; constipation; r/o obstruction Signed CT ABD/PELVIS W/IV CONT ONLY - 12/04/2019 INDICATION: abd pain; constipation; r/o obstruction COMPARISON: None FINDINGS: The lung bases are clear and the heart size is normal. The liver, gallbladder, spleen, pancreas, adrenals, and kidneys are normal. There are some surgical clips in the right lower quadrant. The small bowel appears unremarkable. There is diffuse distention of the colon with fluid and frothy material. No wall thickening. No evidence of perforation. Uterus is absent. Urinary bladder and rectum are normal. There are moderate degenerative changes of the spine. No acute or suspicious bony lesion. IMPRESSION: Colon is somewhat distended and filled with fluid material. This may reflect colonic ileus or diarrhea illness. This exam was performed using automated exposure control, adjustment of mA or kV according to patient size, and/or use of iterative reconstruction technique Electronically signed by Lm Hernandez 12/04/2019 6:36 PM 12/04/191835 Interpreting Physician: Lm Hernandez MD Dictated Date/Time: 12/04/191830 cc: Nahomi Erazo; Teri Long) - CONSULTS/PCP/HOSPITALIST Notification #1 *Consult/PCP/Hospitalist*: Dr. Monsalve, Surgeon Time Discussed: 18:57 Reason/Comments: Colonic ileus/distension Consult Disposition: Admit (To hospitalist; will consult) #2 Consult: Dr. Young, Hospitalist Time Discussed: 19:10 Reason/Comments: Colonic ileus/distension Consult Disposition: Will see in ED, Admit Departure - Departure Date of Disposition Decision: 12/04/19 Time of Disposition Decision: 18:59 DIAGNOSIS: Ileus, Abdominal distension Abdominal pain Qualifiers: Abdominal location: generalized Qualified Code(s): R10.84 - Generalized abdominal pain Low back pain Qualifiers: Chronicity: chronic Back pain laterality: unspecified Sciatica presence: with sciatica Sciatica laterality: sciatica of right side Qualified Code(s): M54.41 - Lumbago with sciatica, right side Disposition: ADMITTED INPATIENT 09 Certified Medical Emergency: Emergent Condition: Stable - Critical Care Note This patient required my direct & personal management of CC.: No Attestation - Physician/ CECY Attestation Patient care was provided by Advanced Practice Provider:: Yes Advanced Practice Provider:: Nahomi Erazo Advanced Practice Provider documentation review:: The Mid-level provider documentation, treatment plan and medical decision making was reviewed by the physician who agrees with all treatment and medical decision making by the P. The physician spent face to face time with patient:: No Advanced Practice Provider documentation review:: Supervising physician onsite and consulted in the evaluation and care of this patient. The physician did not have a face to face encounter with the patient.
[2019-12-04] MEDS ORDERED: TORADOL IV ONE (16:40)
[2019-12-04 16:56] LABS: BILIRUBIN URINE NEGATIVE (NEGATIVE); BLOOD URINE NEGATIVE (NEGATIVE); COLOR YELLOW; GLUCOSE URINE NEGATIVE (NEGATIVE); KETONE URINE NEGATIVE (NEGATIVE); LEUKOCYTES URINE NEGATIVE (NEGATIVE); NITRITE URINE NEGATIVE (NEGATIVE); PH URINE 6.5; PROTEIN URINE TRACE mg/dL (NEGATIVE); TURBIDITY URINE CLEAR (CLEAR); UR EPITHELIAL CELLS <10 /HPF (<10); URINE BACTERIA NEGATIVE /HPF; URINE RBC <10 /HPF (<10); URINE WBC <10 /HPF (<10); UROBILINOGEN URINE NORMAL (NORMAL)
[2019-12-04 17:01] LABS: AGAP 12; ALB/GLOB RATIO 1.3; ALBUMIN 4.2 g/dL (3.5-5.0); ALKALINE PHOSPHATASE 97 U/L (32-104); BUN 9 mg/dL (8-22); CALCIUM 9.6 mg/dL (8.8-10.2); CHLORIDE 100 mmol/L (98-107); COSMO 278; CREATININE 0.7 mg/dL (0.5-0.9); ESTIMATED GFR > 60; GLUCOSE 101 mg/dL (70-104); GOT 13 U/L (10-30); GPT 9 U/L (10-36); POTASSIUM 3.9 mmol/L (3.5-5.1); SODIUM 140 mmol/L (136-145); TCO2 28 mmol/L (25-35); TOTAL BILIRUBIN 0.35 mg/dL (0.20-1.00); TOTAL PROTEIN 7.5 g/dL (6.3-8.3)
--- NOTE | 2019-12-04 18:38 | Diag Imaging Result Doc PS360 ---
CT ABD/PELVIS W/IV CONT ONLY - 12/04/2019 INDICATION: abd pain; constipation; r/o obstruction COMPARISON: None FINDINGS: The lung bases are clear and the heart size is normal. The liver, gallbladder, spleen, pancreas, adrenals, and kidneys are normal. There are some surgical clips in the right lower quadrant. The small bowel appears unremarkable. There is diffuse distention of the colon with fluid and frothy material. No wall thickening. No evidence of perforation. Uterus is absent. Urinary bladder and rectum are normal. There are moderate degenerative changes of the spine. No acute or suspicious bony lesion. IMPRESSION: Colon is somewhat distended and filled with fluid material. This may reflect colonic ileus or diarrhea illness. This exam was performed using automated exposure control, adjustment of mA or kV according to patient size, and/or use of iterative reconstruction technique Electronically signed by Lm Hernandez 12/04/2019 6:36 PM
[2019-12-04] MEDS ORDERED: MOVANTIK PO ONE (20:25)
[2019-12-04] MEDS ORDERED: SENOKOT PO ONE (20:25)
[2019-12-04] MEDS ORDERED: TYLENOL PO PRN (20:25)
[2019-12-04] MEDS ORDERED: NUBAIN IV PRN (20:25)
[2019-12-04] MEDS ORDERED: ZOFRAN IV PRN (20:25)
[2019-12-04] MEDS ORDERED: DULCOLAX PO ONE (20:25)
[2019-12-04] MEDS ORDERED: FLEET ENEMA PR ONE (20:25)
[2019-12-04] MEDS ORDERED: LOVENOX SUBQ SCH (20:25)
--- NOTE | 2019-12-04 20:42 | HISTORY AND PHYSICAL ---
PRIMARY CARE PHYSICIAN: STANISLAV Helton. REASON FOR ADMISSION: A 2-week history of no bowel movement and four-day history of acute on chronic low back pain. Ms. Dianna Sutton is a 59-year-old, black female who has a past medical history of hypertension and a prior right CVA with left-sided weakness, hyperlipidemia, migraine headaches. Her primary care provider is Teri Long. So, patient reports that 3 weeks ago she was started on tramadol and another "pain medication." A week later, she noticed that she was not having any bowel movements and this continued for the last 2 weeks up until this afternoon when she just defecated in the ER the bathroom. She came in primarily because 4 days ago she developed intense lower back pain, right worse than the left, radiating down her right leg. The pain is achy, worse with movement, constant, she rates it a 10/10. Stating that it is the worst pain she has experienced. She says that she has also been having you some degree of urinary incontinence, but denies any numbness or tingling in her buttock or lower extremity area. She says her legs are not weak per se, but she says it is hard to quantify her strength in her legs over the last 4 days because of the excruciating pain. No weight loss or night sweats. No trauma to her back. No fever or chills. No bleeding from any orifice. No melanotic stools. No nausea, vomiting. No cardiorespiratory complaints. No new focal weakness elsewhere. No visual symptoms or headaches. No polyuria or polydipsia. REVIEW OF SYSTEMS: Twelve system review was done. Positive findings per HPI. Please note that the patient acknowledges using several laxatives over the last couple days ago and results per bowel movement. ALLERGIES: [place] medication derivatives and other derivatives. HOME MEDICATIONS: Were not reconciled, but she did note aspirin and Plavix and Lipitor, tramadol, and the yet to be determined pain medication. SURGICAL HISTORY: , hysterectomy. SOCIAL HISTORY: Does not smoke, drink or use drugs. FAMILY HISTORY: Notable for heart disease and stroke in first-degree relatives. LABORATORY WORK: White count 7000, hemoglobin and hematocrit 12 and 37, platelets 257,000. Normal differential. BUN is 9, creatinine 0.7. Urinalysis, trace protein, otherwise unremarkable. CT abdomen and pelvis showed somewhat distended colon with fluid- filled material. No acute bony lesions noted. PHYSICAL EXAMINATION: GENERAL: Obese, middle-aged, black female not in acute distress. VITAL SIGNS: Blood pressure is 126/ 70heart rate 64, respiratory rate is 18, temperature is 97.4 degrees. She is 97% on room air. NEUROLOGIC: She is alert and oriented to person and time. Normal mood and affect. HEENT: Head is normocephalic, atraumatic. Eyes, SABRINA, EOMI. Anicteric. Not pale. ENT exam is normal. NECK: Supple. No JVD or carotid bruit. No thyromegaly. CHEST: Clear when auscultated with good air entry in both lung martel. CARDIOVASCULAR: First and 2nd sounds heard. No gallops, rubs. Regular. ABDOMEN: Slightly distended, soft, not tender, no mass or organomegaly appreciated. Bowel sounds are hypoactive. RECTAL: Deferred at this time. Rectal exam done by a nurse practitioner said there was no feces in the rectal vault. EXTREMITIES: Good distal pulse volumes, regular, symmetrical. NEUROLOGICAL: Patient has good deep tendon reflexes in all extremities. Her power in the lower extremities are rated about 3/5. I did not do straight leg raising test. There is no focal tenderness on her lower spine. The patient had no sensory deficits noted. SKIN: Intact. No breakdown, lesions. MUSCULOSKELETAL: Grossly normal. ASSESSMENT: 1. Colonic distention probably related to medication. Cannot rule out spinal involvement. 2. Acute on chronic low back pain. 3. Hypertension. 4. Hyperlipidemia. 5. History of cerebrovascular accident with left hemiparesis. PLAN: Dr. Monsalve was notified and the patient is admitted for proper bowel evacuation. We will consult Dr. Tripathi who is on for GI for possible colonoscopy, in versus outpatient, at his discretion. In the meantime, we will continue with Fleet enema and laxatives. We will also discontinue the tramadol. We will treat the patient's lower back pain symptomatically with Toradol and Nubain for the interim. We will proceed with further imaging studies, preferably an MRI of the lower spine. If there is any change in neurological exam by tomorrow, especially if we have addressed her pain as a limiting factor and if she is still having weakness, this needs to be evaluated further. We will resume home medications. Also, get her med rec list accordingly and will avoid any potential constipating medications. cc: MD Teri Willson CRNP MTDD
[2019-12-04] MEDS: POTASSIUM CHLORIDE 10 MEQ in NS 1,000 ML IV SCH (22:52)
[2019-12-04] MEDS: TORADOL IV PRN (23:15)
--- NOTE | 2019-12-05 06:15 | GENERAL SURGERY CONSULTATION ---
DATE: 12/05/2019 REQUESTING PHYSICIAN: Emergency Department. REASON FOR CONSULTATION: Colonic ileus. HISTORY OF PRESENT ILLNESS: A 59-year-old female with a 2-week history of lack of bowel movement. She says that she has had issues with bowel movements, and only has 1 every week. She has to try several things to get it. She also reported some intense right back pain. She was seen in the emergency department and had a CT scan that only essentially showed a colonic ileus. No acute pathology to correspond with her back pain. She has been admitted. She did have a bowel movement. She is feeling a little bit better. She is passing gas. I was asked to weigh an opinion. PAST MEDICAL HISTORY: History of CVA with residual left-sided weakness, hyperlipidemia, migraine headaches, and hypertension. PAST SURGICAL HISTORY: and hysterectomy. ALLERGIES: [place]. HOME MEDICATIONS: 1. Plavix. 2. Lipitor. 3. Pyridium. 4. Levaquin. FAMILY HISTORY: Positive for heart disease and stroke. SOCIAL HISTORY: Does not smoke. Lives at home. REVIEW OF SYSTEMS: A full 14 systems reviewed are negative except as specified in HPI. PHYSICAL EXAMINATION: Vital Signs: Patient is currently afebrile. Her vital signs are stable. General: No acute distress. Alert, interactive, female looks stated age. HEENT: Normocephalic, atraumatic. Pupils equal, round, and reactive to light. Mucous membranes moist. Oropharynx benign. Neck: Supple. Trachea midline. Cardiovascular: Regular rate and rhythm. Lungs: Grossly clear. Abdomen: Soft. There is some mild distention. Positive bowel sounds auscultated. No tenderness to palpation. Extremities: Moves all extremities. Neurologic: There is some residual weakness on the left side. Skin: No signs of jaundice. Vascular: All extremities perfused. LABORATORY: Reviewed. CT scan independently reviewed and radiology report reviewed. ASSESSMENT AND PLAN: A 59-year-old female with colonic ileus. Colonic ileus. At this time, it is probably to some degree of medication. I agree with getting GI involved. I do not see anything blocking her colon on CT scan, but she probably does need a colonoscopy to evaluate that further. She is having some return of bowel function so recommend just supportive care for right now, and follow up with GI recommendations. I appreciate the consultation. cc: MD Devon Ramos MD
[2019-12-05] MEDS: TORADOL IV PRN (06:40)
[2019-12-05 06:48] LABS: BASO# 0.02 X1000 (0.0-0.2); BASO% 0.4 % (0.0-0.8); EOS# 0.27 X1000 (0.0-0.7); EOS% 5.6 % (0.0-10.0); HEMATOCRIT 37.2 % (37.0-47.0); HEMOGLOBIN 11.8 g/dL (12.0-16.0); LYMPH# 2.09 X1000 (1.2-3.4); LYMPH% 43.7 % (20.5-51.1); MCH 28.8 PG (27-31); MCHC 31.7 g/dL (33-37); MCV 90.7 FL (81-99); MONO# 0.36 X1000 (0.11-0.59); MONO% 7.5 % (1.7-9.3); MPV 9.4 FL (7.4-10.4); NEUT# 2.04 X1000 (1.4-6.5); NEUT% 42.8 % (42.2-75.2); PLT 250 X1000 (130-400); RDW 12.7 % (11.5-14.5); WBC 4.78 X1000 (4.8-10.8)
[2019-12-05 07:16] LABS: AGAP 8; ALB/GLOB RATIO 1.5; ALBUMIN 3.6 g/dL (3.5-5.0); ALKALINE PHOSPHATASE 84 U/L (32-104); BUN 9 mg/dL (8-22); CALCIUM 8.7 mg/dL (8.8-10.2); CHLORIDE 104 mmol/L (98-107); COSMO 278; CREATININE 0.6 mg/dL (0.5-0.9); ESTIMATED GFR > 60; GLUCOSE 99 mg/dL (70-104); GOT 12 U/L (10-30); GPT 8 U/L (10-36); MAGNESIUM 2.4 mg/dL (1.5-2.7); SODIUM 140 mmol/L (136-145); TCO2 28 mmol/L (25-35); TOTAL BILIRUBIN 0.49 mg/dL (0.20-1.00)
[2019-12-05] MEDS: POTASSIUM CHLORIDE 10 MEQ in NS 1,000 ML IV SCH (07:44)
[2019-12-05] MEDS ORDERED: SODIUM CHLORIDE 0.9% INJ SCH (08:45)
[2019-12-05] MEDS ORDERED: PROTONIX IV SCH (08:45)
[2019-12-05] MEDS ORDERED: SENOKOT PO SCH (09:00)
[2019-12-05] MEDS ORDERED: 1/2 NS 1,000 ML IV SCH (11:00)
[2019-12-05] MEDS ORDERED: LINZESS PO SCH (11:35)
[2019-12-05 11:57] VITALS: BP 126/71
--- NOTE | 2019-12-05 12:28 | GASTROENTEROLOGY CONSULTATION ---
DATE: 12/05/2019 REASON FOR CONSULTATION: Constipation HISTORY OF PRESENT ILLNESS: Ms. Sutton is a 59-year-old -Nepalese female, who came into the hospital yesterday with complaints of constipation for the last 2 weeks onwards. The patient also complains of lower abdominal pain and back pain, rating her back pain as 9/10, describing as a shooting pain. She has denied any nausea, vomiting, or any flu-like symptoms like fever, chills, shortness of breath. The patient also has denied noticing any blood in her stools. Patient mentioned that she has been having constipation and it is normal for her to not have a bowel movement for a week, and takes stool softeners on a regular basis. The patient takes tramadol as her pain medication. She was started on tramadol 3 weeks back and she says that after she started taking tramadol, she has noted that she has not been having bowel movements. The patient had her last colonoscopy done 5 years back in [place]. Today, the patient is mentioning that she has been having watery diarrhea. She has had almost 5 bowel movements. The patient had an abdomen and pelvis CT done and it showed that the colon is somewhat distended and filled with fluid material which may reflect a colonic ileus or diarrhea illness. PAST MEDICAL HISTORY: Hypertension, CVA with left-sided weakness, hyperlipidemia, migraine headaches, and back pain. PAST SURGICAL HISTORY: A and hysterectomy. ALLERGIES: [place] and citrus derivative. SOCIAL HISTORY: The patient is single. She has 3 kids. She denied smoking, drinking, or using illicit drugs. FAMILY HISTORY: Significant for heart disease. HOME MEDICATIONS: Celexa 20 mg p.o. daily, Plavix 75 mg p.o. daily, Lipitor 40 mg p.o. at bedtime, ibuprofen 800 mg p.o. 3 times a day as needed, gabapentin 300 mg p.o. 3 times a day, Pyridium 200 mg p.o. 3 times a day,and Levaquin 750 mg p.o. for 7 days. REVIEW OF SYSTEMS: As per HPI, otherwise, 12-point review of system is negative. PHYSICAL EXAMINATION: Vital Signs: Temperature 98.0 degrees, pulse 74, respirations 17, blood pressure 115/52, oxygen saturation 99% on room air. The patient's weight is 215 pounds, BMI is 36.9 kg/m2. General: She is alert, oriented x3, answering questions appropriately, and in no acute distress. HEENT: Pale conjunctivae. No icterus. PERRL. Neck: Supple. Lungs: Clear to auscultation. Cardiovascular: Regular rate and rhythm. Abdomen: Morbidly obese, tender in the lower quadrants. Active bowel sounds heard in all 4 quadrants. Extremities: No clubbing, no cyanosis, no edema. Pedal pulses 2+ present bilaterally. Neurological: Alert, oriented x3. Nonfocal. Cranial nerves II through XII grossly intact. LABORATORY DATA: WBCs of 4.78, RBC 4.10, hemoglobin 11.8, hematocrit 37.2, platelet count is 250,000. Sodium 140, potassium 4.0, chloride 104, carbon dioxide 28, anion gap 8, BUN 9, creatinine is 0.6, glucose 99, calcium 8.7, magnesium 2.4, total bilirubin 0.49, AST 12, ALT 8, alkaline phosphatase 84, albumin is 3.6. Urinalysis has shown trace of protein. IMAGING: Abdomen and pelvis CT has shown colon is somewhat distended and filled with fluid material. This may reflect colonic ileus or diarrhea illness. IMPRESSION AND PLAN: - Constipation - Abdominal pain - HTN - Obesity PLAN: Ms. Sutton is a 59-year-old -Nepalese female with a history of CVA and hypertension. Gastroenterology has been following her for a colonic ileus. The patient was constipated for the last 2 weeks, but today she has been having bouts of watery diarrhea. We have started the patient on Linzess 290 mcg daily. She is currently on PPIs daily. Patient is receiving IV fluids, half-normal saline at 100 mL/h. This plan was discussed with Dr. Amaya. Please call us for any further questions or concerns. Dictated by STANISLAV Llanes for Cirilo Amaya MD cc: Devon Carpenter MD Physician Attestation I have seen and examined the patient. I have discussed and reviewed the note by Claire [place] and agree with findings and plan as documented. Her constipation has improved with aggressive bowel regimen started in the ER. No red flags including abnormal weight loss, N/V, rectal bleeding, melena. She is uptodate with screening colonoscopy. No obstruction on CT. DDx includes IBS-C, slow-transit constipation, and OIC. Agree with starting Linzess and outpatient follow-up. Will sign off. MTDD
--- NOTE | 2019-12-11 21:31 | DISCHARGE SUMMARY ---
ADMISSION DATE: 12/04/2019 DISCHARGE DATE: 12/05/2019 FINAL DISCHARGE DIAGNOSES: 1. Colonic ileus. 2. Situational depression. 3. Hyperlipidemia. 4. History of cerebrovascular accident. 5. Migraine headaches. CONSULTATIONS: 1. General Surgery consultation with Dr. Monsalve. 2. GI consultation with Dr. Amaya. IMAGING: CT of the abdomen and pelvis performed on 12/04/2019 which revealed distended colon filled with fluid material. HOSPITAL COURSE: Ms Sutton is a 59-year-old female with a history of multiple medical problems who presented to the ER with a chief complaint of abdominal pain and constipation. In the ER, a CT of the abdomen and pelvis was done that revealed colon that was distended with fluid material. The patient was admitted to the hospitalist service and GI as well as General Surgery were consulted. It was recommended by General Surgery that the patient may receive supportive care until return of bowel function was established. While hospitalized the patient started having bowel movements. The patient was assessed by the county nurse and at that time she was having diarrhea. She was started on Linzess however prior to the patient being cleared to be discharged home, she decided to leave the hospital against medical advice. The patient was advised that she should stay in the hospital until her acute problem had been addressed, however she opted to leave and stated that she could not wait any longer. The patient was advised to return to the ER if she has further symptoms. The risks of leaving before her treatment were discussed with the patient which include severe disability and even . The patient stated that she was willing to take those risks and left the hospital against medical advice. cc: MD Devon France MD
== END 2019-12-05 13:41 | disposition left against medical advice (07) | DRG 389 ==
LOC: SUPCPDRO → ED 14:42 → SUATTDRO 20:34 → 3N 20:34
PROVIDERS: ADMIT Internal Medicine; ATTEND Internal Medicine